=== PATIENT | female | born 1955 | race Caucasian/White ===

== ENCOUNTER 2023-06-23 13:06 | Outpatient (REF) | payer MEDICARE, MEDICAID, SELFPAY ==
--- NOTE | ~2023-06-23 | US_ITS ---
EXAMINATION: ARTERIAL DUPLEX BILATERAL LEGS CLINICAL INFORMATION: Bilateral atherosclerosis. COMPARISON: None TECHNIQUE: Duplex Doppler of the bilateral lower extremity arterial systems was performed. FINDINGS: RIGHT: Diffuse atherosclerosis. Common femoral: PSV 200 cm/s. Triphasic waveform. Deep femoral: PSV 179 cm/s. Triphasic waveform. Proximal superficial femoral: PSV 205 cm/s. Triphasic waveform. Mid superficial femoral: There is a focal stenosis with a 2:1 velocity shift. PSV 357 cm/s. Monophasic waveform consistent with a greater than 50% stenosis. Distal superficial femoral: PSV 118 cm/s. Monophasic waveform. Popliteal: PSV 149 cm/s. Monophasic waveform. Posterior tibial: PSV 108 cm/s. Monophasic waveform. LEFT: Diffuse atherosclerosis. Common femoral: PSV 130 cm/s. Monophasic waveform. Deep femoral: PSV 68 cm/s. Monophasic waveform. Proximal superficial femoral: There is a focal stenosis with a less than 2:1 velocity shift. PSV 104 cm/s. Monophasic waveform. Mid superficial femoral: PSV 37 cm/s. Monophasic waveform. Distal superficial femoral: Occluded with collaterals. Popliteal: PSV 54 cm/s. Monophasic waveform. Posterior tibial: PSV 29 cm/s. Monophasic waveform. Incidental note made of a cardiac arrhythmia. US/US arterial duplex LE BI IMPRESSION: Diffuse atherosclerotic disease. Monophasic waveforms throughout the left lower extremity may indicate inflow disease. Additionally there is a focal less than 50% stenosis in the proximal SFA and an occlusion in the distal SFA with collateralization. Moderate greater than 50% focal stenosis in the mid right SFA. Incidental note made of cardiac arrhythmia.
--- NOTE | ~2023-06-23 | US_ITS ---
EXAMINATION: US EXTRACRANIAL CAROTID DUPLEX, BILATERAL CLINICAL INFORMATION: Carotid stenosis COMPARISON: None available. TECHNIQUE: Real-time ultrasound and Doppler techniques (integrating B-mode 2-D vascular images, Doppler spectral analysis and color-flow Doppler imaging) were utilized to interrogate the extracranial carotid arteries, the vertebral arteries and proximal subclavian arteries bilaterally. The degree of stenosis is determined by criteria similar to NASCET. FINDINGS: Right Side: 1. There is moderate atherosclerotic plaque seen in the bifurcation/proximal ICA region. 2. The common carotid artery PSV proximally is 93 cm/s and distally 87 cm/s. 3. The proximal internal carotid artery velocities are 150 cm/s systolic and 44 cm/s diastolic. 4. The proximal external carotid artery PSV is 135 cm/s. 5. The vertebral artery shows antegrade flow. 6. The subclavian artery waveforms are biphasic with elevated velocity. Left Side: 1. There is moderate atherosclerotic plaque seen in the bifurcation/proximal ICA region. 2. The common carotid artery PSV proximally is 76 cm/s and distally 136 cm/s. 3. The proximal internal carotid artery velocities are 217 cm/s systolic and 61 cm/s diastolic. 4. The proximal external carotid artery PSV is 64 cm/s. 5. The vertebral artery shows biphasic flow. 6. The subclavian artery waveforms are monophasic US/US carotid duplex BI IMPRESSION: 1. RIGHT: Moderate, hemodynamically significant stenosis of the proximal right internal carotid artery corresponding to a 50-79% stenosis by velocity criteria. 2. LEFT: Moderate, hemodynamically significant stenosis of the proximal left internal carotid artery corresponding to a 50-79% stenosis by velocity criteria. 3. 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 Biphasic flow in the left vertebral artery consistent with presteal physiology.
== END 2023-06-23 13:07 | disposition home or self-care (01) ==
LOC: HO.US 13:06
PROVIDERS: PCP Internal Medicine; Visit Provider Internal Medicine
DX: I70.213 Atherosclerosis of native arteries of extremities with intermittent claudication, bilateral legs (principal); I65.23 Occlusion and stenosis of bilateral carotid arteries
CPT/HCPCS: 93880; 93925